=== PATIENT | male | born 1980 | race Caucasian/White ===

== ENCOUNTER 2021-01-01 18:20 | Emergency (ER) | payer OTHER ==
[2021-01-01] MEDS ORDERED: HYDROmorphone 0.5 MG/0.5 ML SYRINGE IVP STA (19:07)
[2021-01-01] MEDS ORDERED: ONDANSETRON 4 MG/2 ML VIAL IVP STA (19:07)
[2021-01-01] MEDS ORDERED: KETOROLAC 15 MG/ML 1 ML VIAL IVP STA (19:07)
[2021-01-01] MEDS ORDERED: SODIUM CHLORIDE 0.9% 1,000 ML IV STA (19:07)
--- NOTE | 2021-01-01 19:11 | ED ---
Male Urogenital HPI - General Chief complaint: Urogenital Stated complaint: abd pain Time Seen by Provider: 01/01/21 18:59 Source: patient Mode of arrival: ambulatory Limitations: no limitations - History of Present Illness Initial comments: 40 year-old male patient presents to the emergency department for evaluation of hematuria and left testicular pain. Patient states that symptoms started this morning and have been worsening. Patient states he has had small blood clots in his urine. Denies any dysuria, urinary frequency, or urgency. Denies any swe lling to the testicles. Denies abdomen or back pain. Denies nausea or vomiting. Reports normal bowel movements. Does have history of kidney stones, but states this is much different. Denies any fever or chills with this. Denies concern for STI, no penile discharge. No injury to the genitalia. - Related Data Home Medications Medication Instructions Recorded Confirmed Acetaminophen [Tylenol] 650 mg PO ONCE PRN 01/01/21 01/01/21 Dextroamphetamine/Amphetamine 20 mg PO BID 01/01/21 01/01/21 [Dextroamp-Amphetamin 20 mg Tab] Previous Rx's Medication Instructions Recorded Doxycycline [Vibramycin] 100 mg PO BID #28 capsule 01/02/21 Allergies Allergy/AdvReac Type Severity Reaction Status Date / Time No Known Allergies Allergy Verified 01/01/21 22:06 Review of Systems ROS Statement: Those systems with pertinent positive or pertinent negative responses have been documented in the HPI. ROS Other: All systems not noted in ROS Statement are negative. Past Medical History Past Medical History: No Reported History History of Any Multi-Drug Resistant Organisms: None Reported Past Surgical History: Appendectomy, Tonsillectomy Past Psychological History: ADD/ADHD Smoking Status: Current every day smoker Past Alcohol Use History: Occasional Past Drug Use History: None Reported General Exam Limitations: no limitations General appearance: alert, in no apparent distress, other (Physical well- developed, well-nourished adult male patient in no acute distress. Vital signs upon presentation are temperature 98.0F, pulse 99, respirations 18, blood pressure 175/83, pulse ox 98% on room air.) Eye exam: Present: normal appearance, PERRL, EOMI. Absent: scleral icterus, conjunctival injection, periorbital swelling ENT exam: Present: normal exam, normal oropharynx, mucous membranes moist Respiratory exam: Present: normal lung sounds bilaterally. Absent: respiratory distress, wheezes, rales, rhonchi, stridor Cardiovascular Exam: Present: regular rate, normal rhythm, normal heart sounds. Absent: systolic murmur, diastolic murmur, rubs, gallop, clicks GI/Abdominal exam: Present: soft, normal bowel sounds. Absent: distended, tende rness, guarding, rebound, rigid exam: Present: normal inspection, testicular tenderness (left). Absent: urethral discharge, scrotal swelling Back exam: Present: normal inspection. Absent: CVA tenderness (R), CVA tenderness (L) Neurological exam: Present: alert, oriented X3, CN II-XII intact Psychiatric exam: Present: normal affect, normal mood Skin exam: Present: warm, dry, intact, normal color. Absent: rash Course Vital Signs 01/01/21 01/01/21 01/01/21 18:34 19:04 20:00 Temperature 98.0 F Pulse Rate 99 101 H 84 Respiratory 18 20 22 Rate Blood Pressure 175/83 150/73 131/57 O2 Sat by Pulse 98 97 98 Oximetry 01/01/21 01/01/21 01/02/21 21:00 22:49 00:26 Temperature 98.2 F Pulse Rate 84 78 74 Respiratory 18 18 17 Rate Blood Pressure 136/63 135/57 131/81 O2 Sat by Pulse 98 96 100 Oximetry Medical Decision Making - Medical Decision Making 40-year-old male patient presents to the emergency department today for evaluation of left testicular pain and blood in his urine. Physical examination did reveal left testicular tenderness. No abdominal tenderness or groin tenderness. No lymphadenopathy. There is no testicular swelling. Labs reviewed and did reveal elevated white blood cell count at 18.8, neutrophils 14.8. Urinalysis showed 2+ protein, trace ketones, large blood, large leukocyte esterase, greater than 182 red blood cells, greater than 182 white blood cells, few bacteria, moderate mucus. Ultrasound of the testicles showed a right epididymal cyst no other abnormalities. Did perform CT of the abdomen and pelvis without contrast did report inflammation around the seminal vesicles. This is consistent with seminal vesiculitis. He'll be treated with IV dose of rocephin and two week course of doxycycline pending urine culture/GC culture results. Patient was informed that this could be sexually transmitted infection. Also informed that this infection could be fertility threatening and he is urged to follow up with urology and take antibiotics as directed. He is instructed follow up with his primary care physician for recheck in 1-2 days. Return parameters were discussed in detail. He verbalizes understanding and agrees with this plan. - Lab Data Result diagrams: 01/01/21 19:42 01/01/21 19:42 Lab Results 01/01/21 01/01/21 01/01/21 Range/Units 19:42 19:42 21:30 WBC 18.8 H (3.8-10.6) k/uL RBC 4.88 (4.30-5.90) m/uL Hgb 15.2 (13.0-17.5) gm/dL Hct 44.8 (39.0-53.0) % MCV 91.8 (80.0-100.0) fL MCH 31.1 (25.0-35.0) pg MCHC 33.9 (31.0-37.0) g/dL RDW 12.7 (11.5-15.5) % Plt Count 310 (150-450) k/uL MPV 7.5 Neutrophils % 79 % Lymphocytes % 11 % Monocytes % 6 % Eosinophils % 2 % Basophils % 1 % Neutrophils # 14.8 H (1.3-7.7) k/uL Lymphocytes # 2.1 (1.0-4.8) k/uL Monocytes # 1.1 H (0-1.0) k/uL Eosinophils # 0.4 (0-0.7) k/uL Basophils # 0.1 (0-0.2) k/uL Sodium 136 L (137-145) mmol/L Potassium 4.1 (3.5-5.1) mmol/L Chloride 105 (98-107) mmol/L Carbon Dioxide 20 L (22-30) mmol/L Anion Gap 11 mmol/L BUN 11 (9-20) mg/dL Creatinine 0.74 (0.66-1.25) mg/dL Est GFR (CKD-EPI)AfAm >90 (>60 ml/min/1.73 sqM) Est GFR (CKD-EPI)NonAf >90 (>60 ml/min/1.73 sqM) Glucose 110 H (74-99) mg/dL Calcium 9.1 (8.4-10.2) mg/dL Total Bilirubin 0.4 (0.2-1.3) mg/dL AST 21 (17-59) U/L ALT 18 (4-49) U/L Alkaline Phosphatase 113 (38-126) U/L Total Protein 6.9 (6.3-8.2) g/dL Albumin 4.1 (3.5-5.0) g/dL Lipase 75 (23-300) U/L Urine Color Yellow Urine Appearance Turbid (Clear) Urine pH 5.5 (5.0-8.0) Ur Specific [place] 1.032 (1.001-1.035) Urine Protein 2+ H (Negative) Urine Glucose (UA) Negative (Negative) Urine Ketones Trace H (Negative) Urine Blood Large H (Negative) Urine Nitrite Negative (Negative) Urine Bilirubin Negative (Negative) Urine Urobilinogen 2.0 (<2.0) mg/dL Ur Leukocyte Esterase Large H (Negative) Urine RBC >182 H (0-5) /hpf Urine WBC >182 H (0-5) /hpf Ur Squamous Epith Cells 3 (0-4) /hpf Urine Bacteria Few H (None) /hpf Urine Mucus Moderate H (None) /hpf Coronavirus (PCR) (Not Detectd) 01/01/21 Range/Units 22:42 WBC (3.8-10.6) k/uL RBC (4.30-5.90) m/uL Hgb (13.0-17.5) gm/dL Hct (39.0-53.0) % MCV (80.0-100.0) fL MCH (25.0-35.0) pg MCHC (31.0-37.0) g/dL RDW (11.5-15.5) % Plt Count (150-450) k/uL MPV Neutrophils % % Lymphocytes % % Monocytes % % Eosinophils % % Basophils % % Neutrophils # (1.3-7.7) k/uL Lymphocytes # (1.0-4.8) k/uL Monocytes # (0-1.0) k/uL Eosinophils # (0-0.7) k/uL Basophils # (0-0.2) k/uL Sodium (137-145) mmol/L Potassium (3.5-5.1) mmol/L Chloride (98-107) mmol/L Carbon Dioxide (22-30) mmol/L Anion Gap mmol/L BUN (9-20) mg/dL Creatinine (0.66-1.25) mg/dL Est GFR (CKD-EPI)AfAm (>60 ml/min/1.73 sqM) Est GFR (CKD-EPI)NonAf (>60 ml/min/1.73 sqM) Glucose (74-99) mg/dL Calcium (8.4-10.2) mg/dL Total Bilirubin (0.2-1.3) mg/dL AST (17-59) U/L ALT (4-49) U/L Alkaline Phosphatase (38-126) U/L Total Protein (6.3-8.2) g/dL Albumin (3.5-5.0) g/dL Lipase (23-300) U/L Urine Color Urine Appearance (Clear) Urine pH (5.0-8.0) Ur Specific [place] (1.001-1.035) Urine Protein (Negative) Urine Glucose (UA) (Negative) Urine Ketones (Negative) Urine Blood (Negative) Urine Nitrite (Negative) Urine Bilirubin (Negative) Urine Urobilinogen (<2.0) mg/dL Ur Leukocyte Esterase (Negative) Urine RBC (0-5) /hpf Urine WBC (0-5) /hpf Ur Squamous Epith Cells (0-4) /hpf Urine Bacteria (None) /hpf Urine Mucus (None) /hpf Coronavirus (PCR) Not Detected (Not Detectd) - Radiology Data Radiology results: report reviewed, image reviewed Ultrasound impression Mild right-sided hydrocele, 7 mm epididymal cyst on the right side. No testicular torsion or mass. No evidence of varicocele. Minimal hydroceles. CT impression shows mild fat stranding in the pelvis on the left side or on the seminal vesicles. This could relate inflammatory process. No abscess seen. Appendix not seen. No sign of appendicitis. Disposition Clinical Impression: Testicular pain, Seminal vesiculitis Disposition: HOME SELF-CARE Condition: Good Instructions (If sedation given, give patient instructions): Urinary Tract Infection in Men (ED) Additional Instructions: Follow up with the urologist for further evaluation as soon as possible. Complete antibiotic prescription in full. Fertility may be affected by this infection, so it is important you follow up and complete your antibiotics. Return to the emergency department for any new, worsening, or concerning symptoms. Prescriptions: Doxycycline [Vibramycin] 100 mg PO BID #28 capsule Is patient prescribed a controlled substance at d/c from ED?: No Referrals: Jared Clark DO [Primary Care Provider] - 1-2 days Lucian Rodriguez MD [STAFF PHYSICIAN] - 1-2 days Time of Disposition: 00:02
[2021-01-01 19:46] LABS: Basophils # (A) 0.1 k/uL (0-0.2); Basophils % (A) 1 %; Eosinophils # (A) 0.4 k/uL (0-0.7); Eosinophils % (A) 2 %; HCT 44.8 % (39.0-53.0); HGB 15.2 gm/dL (13.0-17.5); Lymphocytes # (A) 2.1 k/uL (1.0-4.8); Lymphocytes % (A) 11 %; MCH 31.1 pg (25.0-35.0); MCHC 33.9 g/dL (31.0-37.0); MCV 91.8 fL (80.0-100.0); Mean Platelet Volume 7.5; Monocytes # (A) 1.1 k/uL (0-1.0); Monocytes % (A) 6 %; Neutrophils # (A) 14.8 k/uL (1.3-7.7); Neutrophils % (A) 79 %; Platelet Count 310 k/uL (150-450); RBC 4.88 m/uL (4.30-5.90); RDW 12.7 % (11.5-15.5); WBC 18.8 k/uL (3.8-10.6)
[2021-01-01 20:01] LABS: ALT 18 U/L (4-49); AST 21 U/L (17-59); African American GFR (CKD) >90 (>60 ml/min/1.73 sqM); Albumin 4.1 g/dL (3.5-5.0); Alkaline Phosphatase 113 U/L (38-126); Anion Gap 11 mmol/L; Blood Urea Nitrogen 11 mg/dL (9-20); Calcium 9.1 mg/dL (8.4-10.2); Carbon Dioxide 20 mmol/L (22-30); Chloride 105 mmol/L (98-107); Glucose 110 mg/dL (74-99); Lipase 75 U/L (23-300); Non-African American GFR(CKD) >90 (>60 ml/min/1.73 sqM); Potassium 4.1 mmol/L (3.5-5.1); Sodium 136 mmol/L (137-145); Total Bilirubin 0.4 mg/dL (0.2-1.3); Total Protein 6.9 g/dL (6.3-8.2)
--- NOTE | 2021-01-01 21:39 | US ---
EXAMINATION TYPE: US scrotum with doppler. Grayscale and color Doppler Duplex imaging performed of nancy worrell scrotum. DATE OF EXAM: 01/01/2021 COMPARISON: NONE CLINICAL HISTORY: Left testicular pain. Left testicular pain. Hx appendectomy. EXAM MEASUREMENTS: TESTICLES: Right Testicle: 4.0 x 2.5 x 2.7 cm Left Testicle: 3.7 x 2.9 x 2.3 cm EPIDIDYMIS HEAD: Right Epididymis: 1.4 x 1.3 x 1.0 cm Left Epididymis: 1.1 x 1.1 x 0.9 cm -Anechoic area seen within versus adjacent to the right epididymis measurin.7 x 0.7 x 0.7 cm. Doppler performed to assess for testicular vascularity; bilateral color flow and waveforms are seen. Presence of hydroceles: Right: 2.3 x 0.3 x 0.3 cm. Left: 1.0 x 0.5 x 0.2 cm. Presence of varicoceles: Vessels measure up to 2 mm on the left. IMPRESSION: There is mild right-sided hydrocele. There is 7 mm epididymal cyst on the right side. No testicular torsion or mass. No evidence of varicocele. Minimal hydroceles.
[2021-01-01 22:02] LABS: Appearance,Urine Turbid (Clear); Bacteria,Urine Few /hpf; Bilirubin,Urine Negative (Negative); Blood,Urine Large (Negative); Color,Urine Yellow; Glucose,Urine (UA) Negative (Negative); Ketones,Urine Trace (Negative); Leukocyte Esterase,Urine Large (Negative); Mucus,Urine Moderate /hpf; Nitrite,Urine Negative (Negative); PH, Urine 5.5 (5.0-8.0); Protein,Urine 2+ (Negative); RBC,Urine >182 /hpf (0-5); Specific Gravity,Urine 1.032 (1.001-1.035); Squamous Epithelial Cell,Urine 3 /hpf (0-4); WBC,Urine >182 /hpf (0-5)
[2021-01-01] MEDS ORDERED: HYDROmorphone 1 MG/ML 1 ML SYRINGE IVP STA (22:33)
--- NOTE | 2021-01-01 23:16 | CT ---
EXAMINATION TYPE: CT abdomen pelvis wo con DATE OF EXAM: 01/01/2021 COMPARISON: None HISTORY: testicular pain/Hematuria CT DLP: 2521 mGycm Automated exposure control for dose reduction was used. Images obtained from the diaphragm to the floor the pelvis without contrast. The lung bases are clear. There is no pleural effusion. Heart size is normal. There is no pericardial effusion. Liver spleen stomach pancreas gallbladder appear normal. Bile ducts are not dilated. There is no adrenal mass. Kidneys show normal size and contour. There is no hydronephrosis. Ureters a re not dilated. There is no retroperitoneal adenopathy. Bladder distends smoothly. Bladder is almost empty. There is no free fluid in the pelvis. There is no inguinal hernia. There is no evidence of a p elvic mass. There is some mild fat stranding at the floor the pelvis in the midline and towards left side around the seminal vesicles. The adjacent large bowel appears normal with no wall thickening. Appendix is not definitely seen. There is no sign of thickened appendix. There is no mesenteric edema . There is no ascites or free air. There is no bowel obstruction. Lumbar vertebra have normal alignme nt. Disc spaces are fairly normal. There is no compression fracture. The bony pelvis is intact. The h ip joints are intact. There is no hip dysplasia. IMPRESSION: There is some mild fat stranding in the pelvis on the left side around the seminal vesicles. This cou ld relate to inflammatory process. No abscess seen. Appendix not seen. No sign of appendicitis.
[2021-01-01] MEDS ORDERED: DOXYCYCLINE 100 MG CAP PO STA (23:59)
[2021-01-02 00:27] VITALS: BP 131/81; PULSE 74; RESP 17; TEMP 98.2
[2021-01-02] MEDS ORDERED: cefTRIAXone IN SWFI 1,000 MG/10 ML SYRINGE IVP ONE (00:30)
[2021-01-03 12:53] LABS: C. trachomatis,PCR Negative (Neg,Equiv); Chlamydia trachomatis Source Urine; N. gonorrhoeae,PCR Negative (Neg,Equiv); Neisseria Source Urine
== END 2021-01-02 00:43 | disposition home or self-care (01) ==
LOC: EC 18:20
DX: N49.0 Inflammatory disorders of seminal vesicle (principal); N50.812 Left testicular pain; F17.200 Nicotine dependence, unspecified, uncomplicated
CPT/HCPCS: 36415; 80053; 83690; 85025; 81001; 87491; 87591; 87086; 87635; 93975; 76870; 74176; 99284; 96374; 96375 ×3; 96376; 96361; J2405; J0696; J1170 ×2; J1885